=== PATIENT | male | born 1955 | race American Indian/Alaskan Native ===

== ENCOUNTER 2021-02-01 22:38 | Emergency (ER) | payer OTHER ==
[2021-02-01] MEDS ORDERED: LORazepam 2 MG/ML VIAL IM PRN (23:43)
[2021-02-01] MEDS ORDERED: ZIPRASIDONE MESYLATE 20 MG VIAL IM PRN (23:43)
--- NOTE | 2021-02-01 23:55 | Emergency Department Report ---
<TAMIA WILKINSON - Last Filed: 02/02/21 01:28> ED General Adult HPI - General Chief complaint: Psych Stated complaint: MH/SUICIDAL/MEDICAL CLEARANCE PUI?: No Time Seen by Provider: 02/01/21 23:40 Source: patient, RN notes reviewed Mode of arrival: Ambulatory Limitations: No Limitations - History of Present Illness Initial comments: The patient was evaluated in the emergency department for symptoms described in the history of present illness. He/she was evaluated in the context of the global COVID-19 pandemic, which necessitated consideration that the patient might be at risk for infection with the virus that causes COVID-19. Institutional protocols and algorithms that pertain to the evaluation of patients at risk for COVID-19 are in a state of rapid change based on information released by regulatory bodies including the CDC and federal and state organizations. These policies and algorithms were followed during the patient's care in the emergency department. Please note that these policies, procedures and recommendations changed on a rapid basis. Mr. Melara is a 65-year-old gentleman, former , who served in [employer], who is not known to myself previously, who presents to the ER today with complaint of painless suicidality. He states he will walk into traffic. He denies physical pain. He denies wanting to overdose. He denies Covid symptomatology. He states he does not take prescription medications. He is asking to take a hot shower, and to eat. He denies additional concerns or complaints. He states his symptoms are constant. He does not describe exacerbating or relieving factors at this time. Improves with: none Worsens with: none Associated Symptoms: denies other symptoms - Related Data Allergies Allergy/AdvReac Type Severity Reaction Status Date / Time chlorpromazine Allergy Unknown Verified 02/01/21 23:23 [From Thorazine] haloperidol [From Haldol] Allergy Unknown Verified 02/01/21 23:23 ED Review of Systems Comment: All other systems reviewed and negative Psychiatric: suicidal thoughts ED Past Medical Hx - Social History Smoking Status: Unknown if ever smoked Substance Use Type: None ED Physical Exam - General Limitations: No Limitations General appearance: alert, in no apparent distress - Head Head exam: Present: atraumatic, normocephalic - Eye Eye exam: Present: normal appearance, EOMI. Absent: nystagmus - ENT ENT exam: Present: normal exam, normal orophraynx, mucous membranes moist, normal external ear exam - Neck Neck exam: Present: normal inspection, full ROM. Absent: tenderness, meningismus - Respiratory Respiratory exam: Present: normal lung sounds bilaterally. Absent: respiratory distress, wheezes, rales, rhonchi, stridor, decreased breath sounds - Cardiovascular Cardiovascular Exam: Present: regular rate, normal rhythm, normal heart sounds. Absent: bradycardia, tachycardia, irregular rhythm, systolic murmur, diastolic murmur, rubs, gallop - GI/Abdominal GI/Abdominal exam: Present: soft. Absent: distended, tenderness, guarding, rebound, rigid, pulsatile mass - Rectal Rectal exam: Present: deferred - Extremities Exam Extremities exam: Present: normal inspection, full ROM, other (2+ pulses noted in the bilateral upper and lower extremities. There is no palpable cord. negative Homans sign. Muscular compartments are soft. The pelvis is stable.). Absent: pedal edema, calf tenderness - Back Exam Back exam: Present: normal inspection. Absent: tenderness, CVA tenderness (R), CVA tenderness (L), paraspinal tenderness, vertebral tenderness - Neurological Exam Neurological exam: Present: alert, oriented X3, normal gait, other (No facial droop. Tongue midline. Extraocular movements intact bilaterally. Facial sensation intact to light touch in V1, V2, V3 distribution bilaterally. 5 and a 5 strength in 4 extremities. Sensation intact to light touch in 4 extremities.). Absent: motor sensory deficit - Psychiatric Psychiatric exam: Present: suicidal ideation - Skin Skin exam: Present: warm, dry, intact, normal color. Absent: rash ED Course - Reevaluation(s) Reevaluation #1: 02/02/21 00:31 Differential diagnosis, including but not limited to: Encounter for medical screening examination, encounter for behavioral health screening examination, medical clearance for psychiatric placement, secondary gain, malingering Assessment and plan: 65-year-old gentleman, who is pleasant, calm and cooperative, afebrile, with reassuring vital signs, clinically sober, who walks with a steady gait, with a GCS of 15, who presents to the ER today with a primary complaint of painless suicidality. The patient appears unkempt, and he comes with a few bags of belongings. He is asking to eat and to take a shower. I suspect this patient is undomiciled, and I suspect that he is presenting for the purposes of secondary gain, to obtain fci, food, and access to shower facilities. Nevertheless, given his complaint of suicidality we will place him on a 1013, especially as he endorses that he might run into traffic. We will obtain appropriate screening laboratory studies, and Covid swab. At this point in time, I doubt that the patient will have a medical contraindication to psychiatric disposition. I discussed the plan of care with the patient. He has articulated understanding. He is agreeable to this plan of care. 02/02/21 01:28 laboratory studies appear unremarkable. Patient resting comfortably. At this point in time, patient does not appear to have an immediate medical contraindication to psychiatric mention, evaluation, consultation and placement. Psychiatric consultation pending. ED Medical Decision Making - Lab Data Result diagrams: 02/02/21 00:33 02/02/21 00:33 Vital Signs 02/01/21 23:23 Temperature 97.9 F Pulse Rate 72 Respiratory 18 Rate Blood Pressure 151/92 O2 Sat by Pulse 96 Oximetry Lab Results 02/01/21 02/01/21 02/02/21 Range/Units Unknown Unknown 00:33 WBC 7.4 (4.5-11.0) K/mm3 RBC 4.58 (3.65-5.03) M/mm3 Hgb 14.5 (11.8-15.2) gm/dl Hct 42.1 (35.5-45.6) % MCV 92 (84-94) fl MCH 32 (28-32) pg MCHC 35 H (32-34) % RDW 13.8 (13.2-15.2) % Plt Count 189 (140-440) K/mm3 Lymph % (Auto) 27.5 (13.4-35.0) % [place] % (Auto) 11.6 H (0.0-7.3) % Eos % (Auto) 2.3 (0.0-4.3) % Baso % (Auto) 0.3 (0.0-1.8) % Lymph # (Auto) 2.0 (1.2-5.4) K/mm3 [place] # (Auto) 0.9 H (0.0-0.8) K/mm3 Eos # (Auto) 0.2 (0.0-0.4) K/mm3 Baso # (Auto) 0.0 (0.0-0.1) K/mm3 Seg Neutrophils % 58.3 (40.0-70.0) % Seg Neutrophils # 4.3 (1.8-7.7) K/mm3 Sodium (137-145) mmol/L Potassium (3.6-5.0) mmol/L Chloride (98-107) mmol/L Carbon Dioxide (22-30) mmol/L Anion Gap mmol/L BUN (9-20) mg/dL Creatinine (0.8-1.3) mg/dL Estimated GFR ml/min BUN/Creatinine Ratio % Glucose (75-100) mg/dL Calcium (8.4-10.2) mg/dL Urine Color Yellow (Yellow) Urine Turbidity Clear (Clear) Urine pH 5.0 (5.0-7.0) Ur Specific [place] 1.019 (1.003-1.030) Urine Protein 30 mg/dl (Negative) mg/dL Urine Glucose (UA) Neg (Negative) mg/dL Urine Ketones Neg (Negative) mg/dL Urine Blood Sm (Negative) Urine Nitrite Neg (Negative) Urine Bilirubin Neg (Negative) Urine Urobilinogen 4.0 (<2.0) mg/dL Ur Leukocyte Esterase Neg (Negative) Urine WBC (Auto) < 1.0 (0.0-6.0) /HPF Urine RBC (Auto) 1.0 (0.0-6.0) /HPF Urine Mucus Few /HPF Salicylates (2.8-20.0) mg/dL Acetaminophen (10.0-30.0) ug/mL Urine Cocaine Screen Presumptive positive Plasma/Serum Alcohol (0-0.07) % 02/02/21 02/02/21 02/02/21 Range/Units 00:33 00:33 00:33 WBC (4.5-11.0) K/mm3 RBC (3.65-5.03) M/mm3 Hgb (11.8-15.2) gm/dl Hct (35.5-45.6) % MCV (84-94) fl MCH (28-32) pg MCHC (32-34) % RDW (13.2-15.2) % Plt Count (140-440) K/mm3 Lymph % (Auto) (13.4-35.0) % [place] % (Auto) (0.0-7.3) % Eos % (Auto) (0.0-4.3) % Baso % (Auto) (0.0-1.8) % Lymph # (Auto) (1.2-5.4) K/mm3 [place] # (Auto) (0.0-0.8) K/mm3 Eos # (Auto) (0.0-0.4) K/mm3 Baso # (Auto) (0.0-0.1) K/mm3 Seg Neutrophils % (40.0-70.0) % Seg Neutrophils # (1.8-7.7) K/mm3 Sodium 137 (137-145) mmol/L Potassium 3.6 (3.6-5.0) mmol/L Chloride 99.4 (98-107) mmol/L Carbon Dioxide 25 (22-30) mmol/L Anion Gap 16 mmol/L BUN 11 (9-20) mg/dL Creatinine 1.3 (0.8-1.3) mg/dL Estimated GFR > 60 ml/min BUN/Creatinine Ratio 8 % Glucose 112 H (75-100) mg/dL Calcium 8.6 (8.4-10.2) mg/dL Urine Color (Yellow) Urine Turbidity (Clear) Urine pH (5.0-7.0) Ur Specific [place] (1.003-1.030) Urine Protein (Negative) mg/dL Urine Glucose (UA) (Negative) mg/dL Urine Ketones (Negative) mg/dL Urine Blood (Negative) Urine Nitrite (Negative) Urine Bilirubin (Negative) Urine Urobilinogen (<2.0) mg/dL Ur Leukocyte Esterase (Negative) Urine WBC (Auto) (0.0-6.0) /HPF Urine RBC (Auto) (0.0-6.0) /HPF Urine Mucus /HPF Salicylates < 0.3 L (2.8-20.0) mg/dL Acetaminophen 5.0 L (10.0-30.0) ug/mL Urine Cocaine Screen Plasma/Serum Alcohol (0-0.07) % 02/02/21 Range/Units 00:33 WBC (4.5-11.0) K/mm3 RBC (3.65-5.03) M/mm3 Hgb (11.8-15.2) gm/dl Hct (35.5-45.6) % MCV (84-94) fl MCH (28-32) pg MCHC (32-34) % RDW (13.2-15.2) % Plt Count (140-440) K/mm3 Lymph % (Auto) (13.4-35.0) % [place] % (Auto) (0.0-7.3) % Eos % (Auto) (0.0-4.3) % Baso % (Auto) (0.0-1.8) % Lymph # (Auto) (1.2-5.4) K/mm3 [place] # (Auto) (0.0-0.8) K/mm3 Eos # (Auto) (0.0-0.4) K/mm3 Baso # (Auto) (0.0-0.1) K/mm3 Seg Neutrophils % (40.0-70.0) % Seg Neutrophils # (1.8-7.7) K/mm3 Sodium (137-145) mmol/L Potassium (3.6-5.0) mmol/L Chloride (98-107) mmol/L Carbon Dioxide (22-30) mmol/L Anion Gap mmol/L BUN (9-20) mg/dL Creatinine (0.8-1.3) mg/dL Estimated GFR ml/min BUN/Creatinine Ratio % Glucose (75-100) mg/dL Calcium (8.4-10.2) mg/dL Urine Color (Yellow) Urine Turbidity (Clear) Urine pH (5.0-7.0) Ur Specific [place] (1.003-1.030) Urine Protein (Negative) mg/dL Urine Glucose (UA) (Negative) mg/dL Urine Ketones (Negative) mg/dL Urine Blood (Negative) Urine Nitrite (Negative) Urine Bilirubin (Negative) Urine Urobilinogen (<2.0) mg/dL Ur Leukocyte Esterase (Negative) Urine WBC (Auto) (0.0-6.0) /HPF Urine RBC (Auto) (0.0-6.0) /HPF Urine Mucus /HPF Salicylates (2.8-20.0) mg/dL Acetaminophen (10.0-30.0) ug/mL Urine Cocaine Screen Plasma/Serum Alcohol < 0.01 (0-0.07) % ED Disposition Clinical Impression: Medical clearance for psychiatric admission, Suicidal ideation Disposition: [address] [place] [address] Is pt being admited?: No Does the pt Need Aspirin: No Condition: Good Referrals: PRIMARY CAREMD [Primary Care Provider] - 3-5 Days <JUDAH SANCHEZ - Last Filed: 02/03/21 13:20> ED Review of Systems ROS: Stated complaint: MH/SUICIDAL/MEDICAL CLEARANCE Other details as noted in HPI ED Course Vital Signs 02/01/21 02/02/21 02/02/21 23:23 07:28 14:00 Temperature 97.9 F 97.9 F Pulse Rate 72 90 Respiratory 18 20 20 Rate Blood Pressure 151/92 Blood Pressure 134/98 [Left] O2 Sat by Pulse 96 98 98 Oximetry 02/02/21 02/02/21 02/03/21 20:08 22:38 02:17 Temperature 97.3 F L Pulse Rate 68 60 Respiratory 16 18 Rate Blood Pressure Blood Pressure 115/67 127/82 [Left] O2 Sat by Pulse 97 98 978 H Oximetry 02/03/21 02/03/21 02/03/21 09:01 10:07 10:33 Temperature 97.6 F Pulse Rate 66 66 Respiratory 16 Rate Blood Pressure 145/91 Blood Pressure 145/91 [Left] O2 Sat by Pulse 100 98 Oximetry - Reevaluation(s) Reevaluation #2: 02/03/21 13:20 Please see progress report from the previous 2 days regarding the patient's clinical course. Patient was accepted to [facility] for further management of his mental health illness. ED Medical Decision Making - Lab Data Result diagrams: 02/02/21 00:33 02/02/21 00:33 Critical care attestation.: If time is entered above; I have spent that time in minutes in the direct care of this critically ill patient, excluding procedure time. ED Disposition Is pt being admited?: No Does the pt Need Aspirin: No Time of Disposition: 13:20
[2021-02-02 00:40] LABS: Bilirubin,Urine NEG (Negative); Blood,Urine SM (Negative); Color,Urine Yellow (Yellow); Mucus,Urine FEW /HPF; WBC,Urine < 1.0 /HPF (0.0-6.0)
[2021-02-02 00:48] LABS: Amphetamine Screen,Urine PRESUMPTIVE NEGATIVE; Benzodiazepines Screen,Urine PRESUMPTIVE NEGATIVE; Cannabinoid Screen,Urine PRESUMPTIVE NEGATIVE; Cocaine Screen,Urine PRESUMPTIVE POSITIVE; Methadone Screen,Urine PRESUMPTIVE NEGATIVE; Opiate Screen,Urine PRESUMPTIVE NEGATIVE
[2021-02-02 01:07] LABS: Basophils % (Auto) 0.3 % (0.0-1.8); Eosinophils # (Auto) 0.2 K/mm3 (0.0-0.4); Eosinophils % (Auto) 2.3 % (0.0-4.3); Hematocrit 42.1 % (35.5-45.6); Hemoglobin 14.5 gm/dl (11.8-15.2); Lymphocytes % (Auto) 27.5 % (13.4-35.0); Mean Corpuscular HGB Conc 35 % (32-34); Mean Corpuscular Volume 92 fl (84-94); Monocytes # (Auto) 0.9 K/mm3 (0.0-0.8); Monocytes % (Auto) 11.6 % (0.0-7.3); Platelet Count 189 K/mm3 (140-440); Red Blood Count 4.58 M/mm3 (3.65-5.03); Red Cell Distribution Width 13.8 % (13.2-15.2)
[2021-02-02 01:22] LABS: BUN/Creatinine Ratio 8; Blood Urea Nitrogen 11 mg/dL (9-20); Calcium 8.6 mg/dL (8.4-10.2); Hemolysis Index 11
[2021-02-02] MEDS ORDERED: diphenhydrAMINE 25 MG CAP PO PRN (01:28)
[2021-02-02] MEDS ORDERED: ACETAMINOPHEN 325 MG TAB PO PRN (01:28)
--- NOTE | 2021-02-02 09:40 | Consultation ---
History of Present Illness - Reason for Consult Consult date: 02/02/21 Reason for consult: SI - History of Present Psychiatric Illness Per ER Note: Mr. Melara is a 65-year-old gentleman, former , who served in [place], who is not known to myself previously, who presents to the ER today with complaint of painless suicidality. He states he will walk into traffic. He denies physical pain. He denies wanting to overdose. He denies Covid symptomatology. He states he does not take prescription medications. Raghav Melara si a 65y/o male who presents to the ER for suicidal thoughts. 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 He says "I'm hearing things and my life is a mess; my money, my private life, everything." He says "I am in a crisis. I fought for this Country and nobody cares." The patient verbalizes suicidal thoughts and says "I was walking in and out of traffic. Nothing to live for." He denies any drug use, although he is positive for cocaine. He says he has a history of PTSD. The patient says "I don't have family. I'm just out here." He says "you hear that." He then starts humming. PAST PSYCHIATRIC HISTORY Diagnoses: PTSD Suicide attempts or Self-harm behavior: Yes Prior psychiatric hospitalizations: Yes Substance Abuse history: Cocaine Previous psychiatric medications tried: not taking Outpatient treatment: None reported PAST MEDICAL HISTORY: None reported Family Psychiatric History: None reported or documented SOCIAL HISTORY Marital Status: Living Arrangements: Homeless Employment Status: [employer] Access to guns/weapons: None report Education: History of Abuse: Yes Legal History: None reported REVIEW OF SYSTEMS Constitutional: Negative for weight loss ENT: Negative for stridor Respiratory: Negative for cough or hemoptysis All other systems reviewed and are negative MENTAL STATUS EXAMINATION General Appearance and Behavior: Age appropriate, good hygiene, wearing appropr iate clothes, calm and cooperative Cooperation: cooperative Psychomotor Behavior: Psychomotor normal Mood: depressed Affect and affective range: congruent with stated mood Thought Process: illogical Thought Content: hallucinations Speech: Normal rate, volume and rhythm Suicidal Ideation: Yes Homicidal Ideation: Denies HI Hallucinations: auditory Delusions: None elicited Impulse Control: Impaired Insight and Judgment: Limited insight and judgment Memory: Limited Attention: Limited Orientation: Alert, oriented Assessment and Plan (1) Acute Psychosis TREATMENT PLAN 1013 Olanzapine 5mg po daily Prozac 10mg po daily Trazodone 50mg po qhs Sitter: per primary Medical: per primary Disposition: Recommend acute psychiatric inpatient treatment Will follow. Thanks Case staffed with Dr. Carney Medications and Allergies Allergies Allergy/AdvReac Type Severity Reaction Status Date / Time chlorpromazine Allergy Unknown Verified 02/01/21 23:23 [From Thorazine] haloperidol [From Haldol] Allergy Unknown Verified 02/01/21 23:23 Active Meds: Active Medications Acetaminophen (Acetaminophen 325 Mg Tab) 650 mg PO Q6HR PRN PRN Reason: PAIN Amlodipine Besylate (Amlodipine 5 Mg Tab) 5 mg PO QDAY SOLEDAD Diphenhydramine HCl (Diphenhydramine 25 Mg Cap) 50 mg PO QHS PRN PRN Reason: Insomnia Lorazepam (Lorazepam 2 Mg/Ml Vial) 2 mg IM Q4HR PRN PRN Reason: Agitation Ziprasidone (Ziprasidone Mesylate 20 Mg Vial) 10 mg IM Q2H PRN PRN Reason: Agitation Mental Status Exam - Vital signs Last Vital Signs Temp 97.9 F 02/02/21 07:28 Pulse 90 02/02/21 07:28 Resp 20 02/02/21 07:28 BP 134/98 02/02/21 07:28 Pulse Ox 98 02/02/21 07:28 Results Result Diagrams: 02/02/21 00:33 02/02/21 00:33 Abnormal lab results 02/02/21 02/02/21 02/02/21 Range/Units 00:33 00:33 00:33 MCHC 35 H (32-34) % [place] % (Auto) 11.6 H (0.0-7.3) % [place] # (Auto) 0.9 H (0.0-0.8) K/mm3 Glucose 112 H (75-100) mg/dL TSH 5.970 H (0.270-4.200) mlU/mL Salicylates (2.8-20.0) mg/dL Acetaminophen (10.0-30.0) ug/mL 02/02/21 02/02/21 Range/Units 00:33 00:33 MCHC (32-34) % [place] % (Auto) (0.0-7.3) % [place] # (Auto) (0.0-0.8) K/mm3 Glucose (75-100) mg/dL TSH (0.270-4.200) mlU/mL Salicylates < 0.3 L (2.8-20.0) mg/dL Acetaminophen 5.0 L (10.0-30.0) ug/mL All other labs normal.
[2021-02-02] MEDS: amLODIPine 5 MG TAB PO SCH (09:55)
[2021-02-02] MEDS: FLUoxetine 10 MG TAB PO SCH (09:57)
--- NOTE | 2021-02-02 11:27 | Event Note ---
Date: 02/02/21 S: Patient has no complaints O: Calm and cooperative. Vital signs stable. A: Acute psychosis P: Continue 1013; awaiting inpatient psychiatry bed
[2021-02-02] MEDS ORDERED: traZODone 50 MG TAB PO SCH (22:00)
[2021-02-03 09:02] VITALS: BP 145/91
--- NOTE | 2021-02-03 09:26 | Progress Note ---
Subjective - Reason for Consult Consult date: 02/03/21 Reason for consult: acute psychosis - Chief Complaint Chief complaint: The patient was seen today. He is irritable and upset that he is still in the ER. He says "no food, no home health care social worker, nobody is helping me." The patient says "just let me go home. I fought for this country, nobody doing nothing for me. 5 people left yesterday and I'm still here." Explained to the patient that those patients were discharge home and we are working diligently to get him a bed a facility. The patient is talking and rambling. He denies SI/HI or hallucinations of any kind. He states "I was suicidal, but just let me go since I'm not getting help." He is making a humming sound after speaking. Spoke with the ug designer about placement. She says the patient will be placed today. REVIEW OF SYSTEMS Constitutional: Negative for weight loss ENT: Negative for stridor Respiratory: Negative for cough or hemoptysis All other systems reviewed and are negative MENTAL STATUS EXAMINATION General Appearance and Behavior: Age appropriate, good hygiene, wearing appropriate clothes, calm and cooperative Cooperation: cooperative Psychomotor Behavior: Psychomotor normal Mood: depressed Affect and affective range: congruent with stated mood Thought Process: illogical Thought Content: hallucinations Speech: Normal rate, volume and rhythm Suicidal Ideation: Denies Homicidal Ideation: Denies HI Hallucinations: auditory Delusions: None elicited Impulse Control: Impaired Insight and Judgment: Limited insight and judgment Memory: Limited Attention: Limited Orientation: Alert, oriented Assessment and Plan (1) Acute Psychosis TREATMENT PLAN 1013 Olanzapine 5mg po daily Prozac 10mg po daily Trazodone 50mg po qhs Sitter: per primary Medical: per primary Disposition: Recommend acute psychiatric inpatient treatment Will follow. Thanks Case staffed with Dr. Carney Mental Status Exam - Vital signs Last Vital Signs Temp 97.6 F 02/03/21 09:01 Pulse 66 02/03/21 09:01 Resp 16 02/03/21 09:01 BP 145/91 02/03/21 09:01 Pulse Ox 100 02/03/21 09:01
[2021-02-03] MEDS ORDERED: LORazepam 1 MG TAB PO ONE (09:51)
--- NOTE | 2021-02-03 09:53 | Event Note ---
Date: 02/03/21 Patient having some irritability because he has not been placed as of yet. Still exhibiting some abnormal behaviors. States he is not suicidal anymore only because he states he is tired of waiting. Mental health assessment note is as follows and the patient is to continue to be on a 1013 and should be placed today. Psychiatry Progress Note Patient Name: EDWIN LUNSFORD Date of : 1955 Patient Status: Emergency Emergency Provider: TAMIA WILKINSON Date: 02/03/21 09:22 Initialization Date: 02/03/21 09:22 Subjective - Reason for Consult Consult date: 02/03/21 Reason for consult: acute psychosis - Chief Complaint Chief complaint: The patient was seen today. He is irritable and upset that he is still in the ER. He says "no food, no social work msw, nobody is helping me." The patient says "just let me go home. I fought for this country, nobody doing nothing for me. 5 people left yesterday and I'm still here." Explained to the patient that those patients were discharge home and we are working diligently to get him a bed a facility. The patient is talking and rambling. He denies SI/HI or hallucinations of any kind. He states "I was suicidal, but just let me go since I'm not getting help." He is making a humming sound after speaking. Spoke with the copy room technician about placement. She says the patient will be placed today. REVIEW OF SYSTEMS Constitutional: Negative for weight loss ENT: Negative for stridor Respiratory: Negative for cough or hemoptysis All other systems reviewed and are negative MENTAL STATUS EXAMINATION General Appearance and Behavior: Age appropriate, good hygiene, wearing appropriate clothes, calm and cooperative Cooperation: cooperative Psychomotor Behavior: Psychomotor normal Mood: depressed Affect and affective range: congruent with stated mood Thought Process: illogical Thought Content: hallucinations Speech: Normal rate, volume and rhythm Suicidal Ideation: Denies Homicidal Ideation: Denies HI Hallucinations: auditory Delusions: None elicited Impulse Control: Impaired Insight and Judgment: Limited insight and judgment Memory: Limited Attention: Limited Orientation: Alert, oriented Assessment and Plan (1) Acute Psychosis TREATMENT PLAN 1013 Olanzapine 5mg po daily Prozac 10mg po daily Trazodone 50mg po qhs Sitter: per primary Medical: per primary Disposition: Recommend acute psychiatric inpatient treatment Will follow. Thanks Case staffed with Dr. Carney
[2021-02-03] MEDS: FLUoxetine 10 MG TAB PO SCH (10:07)
[2021-02-03] MEDS: amLODIPine 5 MG TAB PO SCH (10:07)
== END 2021-02-03 16:55 ==
LOC: EEVIPCON 22:38 → ED 22:38
DX: R45.851 Suicidal ideations (principal); Z13.30 Encounter for screening examination for mental health and behavioral disorders, unspecified; Z88.8 Allergy status to other drugs, medicaments and biological substances; Z20.822 Contact with and (suspected) exposure to COVID-19
CPT/HCPCS: 36415; 80307; 81001; 99285; U0003; 80048; 80320; 84443; 85025; G0480

== ENCOUNTER 2021-03-15 20:31 | Emergency (ER) | payer OTHER ==
--- NOTE | 2021-03-15 21:21 | Emergency Department Report ---
ED Psych HPI - General Chief Complaint: Psych Stated Complaint: REQUESTING DETOX Time Seen by Provider: 03/15/21 21:10 Source: patient, old records reviewed Mode of arrival: Ambulatory Limitations: No Limitations - History of Present Illness Initial Comments: 65-year-old homeless male with a past medical history of PTSD and polysubstance abuse presents to the hospital requesting detox from alcohol and drugs. Patient states he has been "drinking and drugging for the last 3 days". He is hoping to get into a program to help him stop abusing drugs. Patient denies auditory visual hallucinations. Denies suicidal homicidal ideation. Denies physical complaints. Denies history of alcohol withdrawal tremors or seizures. As per triage patient was uncooperative and yelling at staff. At time of my evaluation he is cooperative but talking to himself prior to me entering the room. Patient states he [facility]. He is not currently on psychiatric medications at the. As per medical record he was here in January Room air saturation 99% at the bedside - Related Data Allergies Allergy/AdvReac Type Severity Reaction Status Date / Time chlorpromazine Allergy Unknown Verified 02/01/21 23:23 [From Thorazine] haloperidol [From Haldol] Allergy Unknown Verified 02/01/21 23:23 ED Review of Systems ROS: Stated complaint: REQUESTING DETOX Other details as noted in HPI Comment: All other systems reviewed and negative ED Past Medical Hx - Past Medical History Hx Psychiatric Treatment: Yes ("drinking and drugging" reports ETOH use and crack cocaine abuse) - Surgical History Past Surgical History?: No - Social History Smoking Status: Current Every Day Smoker ED Physical Exam - General Limitations: No Limitations - Other Other exam information: General: No acute distress Head: Atraumatic Eyes: normal appearance ENT: Moist mucous membranes Neck: Normal appearance, no midline tenderness Chest: Clear to auscultation bilaterally CV: Regular rate and rhythm Abdomen: Soft, normal bowel sounds, nontender, nondistended, no rebound or guarding Back: Normal inspection Extremity: Normal inspection, full range of motion Neuro: Alert O x 3, no facial asymmetry, speech clear, no gross motor sensory deficit, no tremor Psych: Appropriate behavior Skin: No rash ED Course Vital Signs 03/15/21 03/15/21 03/15/21 20:39 21:13 21:51 Temperature 97.6 F Pulse Rate 99 H 71 Respiratory 20 18 Rate Blood Pressure 141/101 Blood Pressure 136/71 [Left] O2 Sat by Pulse 98 98 Oximetry 03/15/21 03/15/21 03/16/21 22:05 23:32 00:01 Temperature 98.2 F Pulse Rate 77 83 67 Respiratory 18 20 Rate Blood Pressure 113/66 Blood Pressure 119/67 116/72 [Left] O2 Sat by Pulse 97 95 97 Oximetry 03/16/21 03/16/21 03/16/21 00:48 02:52 04:06 Temperature Pulse Rate 73 68 65 Respiratory 16 18 21 Rate Blood Pressure Blood Pressure 116/71 114/49 110/55 [Left] O2 Sat by Pulse 95 97 96 Oximetry 03/16/21 03/16/21 03/16/21 05:27 08:13 09:34 Temperature 97.9 F Pulse Rate 72 80 Respiratory 20 Rate Blood Pressure Blood Pressure 126/65 166/94 [Left] O2 Sat by Pulse 95 100 100 Oximetry ED Medical Decision Making - Lab Data Result diagrams: 03/15/21 21:32 03/15/21 21:32 Lab Results 03/15/21 03/15/21 03/15/21 Range/Units 21:32 21:32 21:32 WBC 5.3 (4.5-11.0) K/mm3 RBC 4.31 (3.65-5.03) M/mm3 Hgb 13.3 (11.8-15.2) gm/dl Hct 39.5 (35.5-45.6) % MCV 92 (84-94) fl MCH 31 (28-32) pg MCHC 34 (32-34) % RDW 14.0 (13.2-15.2) % Plt Count 206 (140-440) K/mm3 Lymph % (Auto) 35.7 H (13.4-35.0) % [place] % (Auto) 12.3 H (0.0-7.3) % Eos % (Auto) 1.3 (0.0-4.3) % Baso % (Auto) 0.5 (0.0-1.8) % Lymph # (Auto) 1.9 (1.2-5.4) K/mm3 [place] # (Auto) 0.7 (0.0-0.8) K/mm3 Eos # (Auto) 0.1 (0.0-0.4) K/mm3 Baso # (Auto) 0.0 (0.0-0.1) K/mm3 Seg Neutrophils % 50.2 (40.0-70.0) % Seg Neutrophils # 2.7 (1.8-7.7) K/mm3 Sodium 141 (137-145) mmol/L Potassium 3.2 L (3.6-5.0) mmol/L Chloride 104.2 (98-107) mmol/L Carbon Dioxide 23 (22-30) mmol/L Anion Gap 17 mmol/L BUN 16 (9-20) mg/dL Creatinine 1.1 (0.8-1.3) mg/dL Estimated GFR > 60 ml/min BUN/Creatinine Ratio 15 % Glucose 102 H (75-100) mg/dL Calcium 8.6 (8.4-10.2) mg/dL Magnesium (1.7-2.3) mg/dL Urine Color (Yellow) Urine Turbidity (Clear) Urine pH (5.0-7.0) Ur Specific Agency (1.003-1.030) Urine Protein (Negative) mg/dL Urine Glucose (UA) (Negative) mg/dL Urine Ketones (Negative) mg/dL Urine Blood (Negative) Urine Nitrite (Negative) Urine Bilirubin (Negative) Urine Urobilinogen (<2.0) mg/dL Ur Leukocyte Esterase (Negative) Urine WBC (Auto) (0.0-6.0) /HPF Urine RBC (Auto) (0.0-6.0) /HPF U Epithel Cells (Auto) (0-13.0) /HPF Urine Mucus /HPF Salicylates < 0.3 L (2.8-20.0) mg/dL Urine Opiates Screen Urine Methadone Screen Acetaminophen (10.0-30.0) ug/mL Ur Barbiturates Screen Ur Phencyclidine Scrn Ur Amphetamines Screen U Benzodiazepines Scrn Urine Cocaine Screen U Marijuana (THC) Screen Drugs of Abuse Note Plasma/Serum Alcohol (0-0.07) % 03/15/21 03/15/21 03/15/21 Range/Units 21:32 21:32 21:32 WBC (4.5-11.0) K/mm3 RBC (3.65-5.03) M/mm3 Hgb (11.8-15.2) gm/dl Hct (35.5-45.6) % MCV (84-94) fl MCH (28-32) pg MCHC (32-34) % RDW (13.2-15.2) % Plt Count (140-440) K/mm3 Lymph % (Auto) (13.4-35.0) % [place] % (Auto) (0.0-7.3) % Eos % (Auto) (0.0-4.3) % Baso % (Auto) (0.0-1.8) % Lymph # (Auto) (1.2-5.4) K/mm3 [place] # (Auto) (0.0-0.8) K/mm3 Eos # (Auto) (0.0-0.4) K/mm3 Baso # (Auto) (0.0-0.1) K/mm3 Seg Neutrophils % (40.0-70.0) % Seg Neutrophils # (1.8-7.7) K/mm3 Sodium (137-145) mmol/L Potassium (3.6-5.0) mmol/L Chloride (98-107) mmol/L Carbon Dioxide (22-30) mmol/L Anion Gap mmol/L BUN (9-20) mg/dL Creatinine (0.8-1.3) mg/dL Estimated GFR ml/min BUN/Creatinine Ratio % Glucose (75-100) mg/dL Calcium (8.4-10.2) mg/dL Magnesium 1.80 (1.7-2.3) mg/dL Urine Color (Yellow) Urine Turbidity (Clear) Urine pH (5.0-7.0) Ur Specific Agency (1.003-1.030) Urine Protein (Negative) mg/dL Urine Glucose (UA) (Negative) mg/dL Urine Ketones (Negative) mg/dL Urine Blood (Negative) Urine Nitrite (Negative) Urine Bilirubin (Negative) Urine Urobilinogen (<2.0) mg/dL Ur Leukocyte Esterase (Negative) Urine WBC (Auto) (0.0-6.0) /HPF Urine RBC (Auto) (0.0-6.0) /HPF U Epithel Cells (Auto) (0-13.0) /HPF Urine Mucus /HPF Salicylates (2.8-20.0) mg/dL Urine Opiates Screen Urine Methadone Screen Acetaminophen 5.0 L (10.0-30.0) ug/mL Ur Barbiturates Screen Ur Phencyclidine Scrn Ur Amphetamines Screen U Benzodiazepines Scrn Urine Cocaine Screen U Marijuana (THC) Screen Drugs of Abuse Note Plasma/Serum Alcohol < 0.01 (0-0.07) % 03/16/21 03/16/21 Range/Units 03:19 03:19 WBC (4.5-11.0) K/mm3 RBC (3.65-5.03) M/mm3 Hgb (11.8-15.2) gm/dl Hct (35.5-45.6) % MCV (84-94) fl MCH (28-32) pg MCHC (32-34) % RDW (13.2-15.2) % Plt Count (140-440) K/mm3 Lymph % (Auto) (13.4-35.0) % [place] % (Auto) (0.0-7.3) % Eos % (Auto) (0.0-4.3) % Baso % (Auto) (0.0-1.8) % Lymph # (Auto) (1.2-5.4) K/mm3 [place] # (Auto) (0.0-0.8) K/mm3 Eos # (Auto) (0.0-0.4) K/mm3 Baso # (Auto) (0.0-0.1) K/mm3 Seg Neutrophils % (40.0-70.0) % Seg Neutrophils # (1.8-7.7) K/mm3 Sodium (137-145) mmol/L Potassium (3.6-5.0) mmol/L Chloride (98-107) mmol/L Carbon Dioxide (22-30) mmol/L Anion Gap mmol/L BUN (9-20) mg/dL Creatinine (0.8-1.3) mg/dL Estimated GFR ml/min BUN/Creatinine Ratio % Glucose (75-100) mg/dL Calcium (8.4-10.2) mg/dL Magnesium (1.7-2.3) mg/dL Urine Color Yellow (Yellow) Urine Turbidity Clear (Clear) Urine pH 5.0 (5.0-7.0) Ur Specific Agency 1.023 (1.003-1.030) Urine Protein <15 mg/dl (Negative) mg/dL Urine Glucose (UA) Neg (Negative) mg/dL Urine Ketones Neg (Negative) mg/dL Urine Blood Neg (Negative) Urine Nitrite Neg (Negative) Urine Bilirubin Neg (Negative) Urine Urobilinogen 4.0 (<2.0) mg/dL Ur Leukocyte Esterase Neg (Negative) Urine WBC (Auto) 1.0 (0.0-6.0) /HPF Urine RBC (Auto) 1.0 (0.0-6.0) /HPF U Epithel Cells (Auto) 1.0 (0-13.0) /HPF Urine Mucus Few /HPF Salicylates (2.8-20.0) mg/dL Urine Opiates Screen Presumptive negative Urine Methadone Screen Presumptive negative Acetaminophen (10.0-30.0) ug/mL Ur Barbiturates Screen Presumptive negative Ur Phencyclidine Scrn Presumptive negative Ur Amphetamines Screen Presumptive negative U Benzodiazepines Scrn Presumptive negative Urine Cocaine Screen Presumptive positive U Marijuana (THC) Screen Presumptive negative Drugs of Abuse Note Disclamer Plasma/Serum Alcohol (0-0.07) % - Medical Decision Making 65-year-old male presents to the hospital requesting detox. Patient does not endorse suicidal homicidal ideation. Patient does have a history of PTSD and was speaking to himself and appeared agitated upon arrival. During ED stay patient is cooperative. Mental health evaluation requested to determine if patient meets criteria for inpatient treatment Critical Care Time: No Critical care attestation.: If time is entered above; I have spent that time in minutes in the direct care of this critically ill patient, excluding procedure time. ED Disposition Clinical Impression: Cocaine abuse, Alcohol abuse, PTSD (post-traumatic stress disorder), Medical clearance for psychiatric admission Disposition: 01 HOME / SELF CARE / HOMELESS Is pt being admited?: No Condition: Stable Instructions: Substance Use Disorder and Mental Illness, Post-Traumatic Stress Disorder, Adult Additional Instructions: Professional and Agency Contacts To help [facility](13/12) [place] Crisis Line: Suicide Prevention Line: Crisis Text Line: Text START to 905450 Emergency: 911 Outpatient COMMUNITY Behavioral Health Resources: [place]: [facility] [address] [place], [place] [address] [place]: [facility] [address] [place] [address] [place]: [facility] - [address] [place] [address] Tuesday thru Tuesday - 8am - 5pm [place]: [facility] Address: [address], [place] [address] [facility] Address: [address] [place] [address] Tuesday thru Tuesday- 7am-2pm [facility] Address: [address] [place] [address] Tuesday thru Tuesday: 8:30AM-5PM In case of an emergency, please contact the following numbers: Crisis and Access Line: Number: Crisis Text Line: (Text START) Number: 896262 Suicide Prevention Line: Number: Emergency Number: 911 SUBSTANCE ABUSE PROGRAMS: [facility]: Location: [place], [place] [facility] Address: [address] [place] [address] [facility] Recovery: Address: [address] [place] [address] [facility]: Address: [address] [place] [address] [facility] Community: Address: [address] [place] [address] [facility] Address: [address] [place] [address]. Please contact above numbers to attempt placement into free based program. Medicaid Programs: [facility]: Address: [address] [place] [address] [facility]: Address: [address] [place] [address] Phone: [phone] Referrals: [facility] [Primary Care Provider] - 3-5 Days
[2021-03-15 21:48] LABS: Basophils % (Auto) 0.5 % (0.0-1.8); Eosinophils # (Auto) 0.1 K/mm3 (0.0-0.4); Eosinophils % (Auto) 1.3 % (0.0-4.3); Hematocrit 39.5 % (35.5-45.6); Hemoglobin 13.3 gm/dl (11.8-15.2); Lymphocytes # (Auto) 1.9 K/mm3 (1.2-5.4); Lymphocytes % (Auto) 35.7 % (13.4-35.0); Mean Corpuscular HGB Conc 34 % (32-34); Mean Corpuscular Volume 92 fl (84-94); Monocytes # (Auto) 0.7 K/mm3 (0.0-0.8); Monocytes % (Auto) 12.3 % (0.0-7.3); Platelet Count 206 K/mm3 (140-440); Red Blood Count 4.31 M/mm3 (3.65-5.03)
[2021-03-15 22:08] LABS: BUN/Creatinine Ratio 15; Blood Urea Nitrogen 16 mg/dL (9-20); Calcium 8.6 mg/dL (8.4-10.2); Hemolysis Index 7
[2021-03-15] MEDS: POTASSIUM CHLORIDE ER 20 MEQ TAB PO ONE ×2 (22:47→22:49)
[2021-03-15] MEDS ORDERED: POTASSIUM CHLORIDE 20 MEQ PACKET PO ONE (22:53)
[2021-03-16 04:07] LABS: Bilirubin,Urine NEG (Negative); Blood,Urine NEG (Negative); Color,Urine Yellow (Yellow); Mucus,Urine FEW /HPF; Protein,Urine <15 mg/dL mg/dL (Negative)
[2021-03-16 04:14] LABS: Amphetamine Screen,Urine PRESUMPTIVE NEGATIVE; Benzodiazepines Screen,Urine PRESUMPTIVE NEGATIVE; Cannabinoid Screen,Urine PRESUMPTIVE NEGATIVE; Cocaine Screen,Urine PRESUMPTIVE POSITIVE; Methadone Screen,Urine PRESUMPTIVE NEGATIVE; Opiate Screen,Urine PRESUMPTIVE NEGATIVE
[2021-03-16 08:14] VITALS: BP 166/94
--- NOTE | 2021-03-16 12:32 | Event Note ---
Date: 03/16/21 S: Patient has no complaints. Patient states he is ready to go. O: No overnight events. Patient is calm and cooperative. Vital signs stable. A: Substance abuse P: Patient has been seen, evaluated, and cleared by psychiatry team. He will be discharged at this time with resources for follow-up.
--- NOTE | 2021-03-16 12:51 | Consultation ---
History of Present Illness - Reason for Consult Consult date: 03/16/21 Reason for consult: Detox - History of Present Psychiatric Illness The patient was seen today. He is a/o x 3. He is calm and cooperative. The patient is known to me from a previous visit. The patient says he's here for detox for crack and alcohol. He says but people here wants him to say he's suici janet. He says "I'm not here for psych. I need detox." The patient says last time he was here he was forced to take a COVID test. He has refused the COVID test again. He says "I don't need a COVID test. I'm here to get off drugs and alcohol." The patient denies SI/HI. He says "I keep telling you I'm not suicidal or homicidal." He also denies hallucinations of any kind. He makes a humming sound when he talks sometimes. I ask him what was that, he laughs and says "that's just me. I do that sometimes." PAST PSYCHIATRIC HISTORY Diagnoses: PTSD Suicide attempts or Self-harm behavior: Yes Prior psychiatric hospitalizations: Yes Substance Abuse history: Cocaine, alcohol Previous psychiatric medications tried: olanzapine, prozac, trazodone Outpatient treatment: None reported PAST MEDICAL HISTORY: None reported Family Psychiatric History: None reported or documented SOCIAL HISTORY Marital Status: Living Arrangements: Homeless Employment Status: Access to guns/weapons: None report Education: History of Abuse: Yes Legal History: None reported REVIEW OF SYSTEMS Constitutional: Negative for weight loss ENT: Negative for stridor Respiratory: Negative for cough or hemoptysis All other systems reviewed and are negative MENTAL STATUS EXAMINATION General Appearance and Behavior: Age appropriate, good hygiene, wearing appropriate clothes, calm and cooperative Cooperation: cooperative Psychomotor Behavior: Psychomotor normal Mood: okay Affect and affective range: congruent with stated mood Thought Process: goal directed Thought Content: none Speech: Normal rate, volume and rhythm Suicidal Ideation: Denies Homicidal Ideation: Denies Hallucinations: Denies Delusions: None elicited Impulse Control: Impaired Insight and Judgment: Limited insight and judgment Memory: Limited Attention: Limited Orientation: Alert, oriented Assessment and Plan (1) Alcohol Dependence (2) Cocaine Dependence TREATMENT PLAN Continue previously prescribed meds Sitter: per primary Medical: per primary Disposition: Do not recommend acute psychiatric inpatient treatment 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 Thanks Case staffed with Dr. Carney Medications and Allergies Allergies Allergy/AdvReac Type Severity Reaction Status Date / Time chlorpromazine Allergy Unknown Verified 02/01/21 23:23 [From Thorazine] haloperidol [From Haldol] Allergy Unknown Verified 02/01/21 23:23 Mental Status Exam - Vital signs Last Vital Signs Temp 97.9 F 03/16/21 08:13 Pulse 80 03/16/21 08:13 Resp 20 03/16/21 08:13 BP 166/94 03/16/21 08:13 Pulse Ox 100 03/16/21 09:34 Results Result Diagrams: 03/15/21 21:32 03/15/21 21:32 Abnormal lab results 03/15/21 03/15/21 03/15/21 Range/Units 21:32 21:32 21:32 Lymph % (Auto) 35.7 H (13.4-35.0) % [place] % (Auto) 12.3 H (0.0-7.3) % Potassium 3.2 L (3.6-5.0) mmol/L Glucose 102 H (75-100) mg/dL Salicylates < 0.3 L (2.8-20.0) mg/dL Acetaminophen (10.0-30.0) ug/mL 03/15/21 Range/Units 21:32 Lymph % (Auto) (13.4-35.0) % [place] % (Auto) (0.0-7.3) % Potassium (3.6-5.0) mmol/L Glucose (75-100) mg/dL Salicylates (2.8-20.0) mg/dL Acetaminophen 5.0 L (10.0-30.0) ug/mL All other labs normal.
== END 2021-03-16 15:05 | disposition home or self-care (01) ==
LOC: ED 20:31
DX: Z04.6 Encounter for general psychiatric examination, requested by authority (principal); F14.10 Cocaine abuse, uncomplicated; F10.10 Alcohol abuse, uncomplicated; F43.10 Post-traumatic stress disorder, unspecified; F17.200 Nicotine dependence, unspecified, uncomplicated; Z88.8 Allergy status to other drugs, medicaments and biological substances; Z79.899 Other long term (current) drug therapy; Y90.9 Presence of alcohol in blood, level not specified
CPT/HCPCS: 36415; 80048; 80307; 80320; 81001; 83735; 85025; 99284; G0480

== ENCOUNTER 2022-01-01 01:00 | Emergency (ER) | payer OTHER | END 2022-01-01 01:20 | disposition left against medical advice (07) | LOC: ED 01:00 | DX: R45.851 Suicidal ideations (principal); Z53.21 Procedure and treatment not carried out due to patient leaving prior to being seen by health care provider; R45.850 Homicidal ideations ==

== ENCOUNTER 2022-02-04 21:10 | Emergency (ER) | payer OTHER | END 2022-02-05 01:37 | disposition left against medical advice (07) | LOC: ED 21:10 | DX: R45.851 Suicidal ideations (principal); Z13.30 Encounter for screening examination for mental health and behavioral disorders, unspecified; Z53.21 Procedure and treatment not carried out due to patient leaving prior to being seen by health care provider ==